=== PATIENT | female | born 1970 | race Two or more races ===

== ENCOUNTER 2016-12-03 05:37 | Emergency (ER) | payer MEDICAID ==
[~2016-12-03] VITALS: Ht 152.4 cm; Wt 90.5 kg
[2016-12-03] MEDS ORDERED: METOCLOPRAMIDE 5 MG/ML, 2ML IVPush ONE (06:00)
[2016-12-03] MEDS ORDERED: MORPHINE SULFATE 4 MG/ML, 1ML IVPush PRN (06:00)
[2016-12-03] MEDS ORDERED: DIPHENHYDRAMINE 50 MG/ML, 1ML IVPush ONE (06:00)
[2016-12-03] MEDS ORDERED: SODIUM CHLORIDE FLUSH 10ML SYR IVF ONE (06:00)
[2016-12-03] MEDS ORDERED: SODIUM CHLORIDE 0.9% 1,000ML IVBOLUS ONE (06:00)
[2016-12-03] MEDS ORDERED: DIPHENHYDRAMINE 50 MG/ML, 1ML ONE (06:14)
[2016-12-03] MEDS ORDERED: MORPHINE SULFATE 4 MG/ML, 1ML ONE (06:14)
[2016-12-03] MEDS ORDERED: METOCLOPRAMIDE 5 MG/ML, 2ML ONE (06:14)
[2016-12-03 06:26] LABS: HEMATOCRIT 37.2 % (34.6-47.8); HEMOGLOBIN 12.2 g/dL (11.7-16.4); WHITE BLOOD COUNT 8.7 x10^3/uL (3.4-10)
[2016-12-03 06:31] LABS: ASPARTATE AMINO TRANSFERASE 21 U/L (15-37); BLOOD UREA NITROGEN 12 mg/dL (7-18)
[2016-12-03 07:19] VITALS: BP 104/43
== END 2016-12-03 07:21 | disposition home or self-care (01) ==
LOC: ED 07:07
DX: R19.7 Diarrhea, unspecified (principal); R10.84 Generalized abdominal pain; R11.2 Nausea with vomiting, unspecified; Z90.49 Acquired absence of other specified parts of digestive tract
CPT/HCPCS: 36415; 74022; 80053; 81001; 83690; 85025; 87086; 96361; 96374; 96375; 99285; J1200; J2765; J7030